=== PATIENT | male | born 1960 | race Caucasian/White ===

== ENCOUNTER 2018-08-02 17:03 | Outpatient (REF) | payer BC, SELFPAY ==
[2018-08-02 21:16] LABS: Abs Immature Grans 0.01 k/cumm (0.0-0.09); Absolute Basophil Count 0.02 k/cumm (0.0-0.2); Absolute Eosinophil Count 0.04 k/cumm (0.0-0.7); Absolute Monocyte Count 0.66 k/cumm (0.11-0.7); Absolute Neutrophil Count 4.61 k/cumm (1.2-6.7); Basophils % 0.3; Eosinophils % 0.6; HCT 41.1 % (40.0-50.0); HGB 14.1 g/dL (13.5-17.5); Immature Grans % 0.1; Lymphocytes % 23.1; Mean Corp. HGB Concentration 34.3 g/dL (32.0-36.0); Mean Corpuscular Hemoglobin 29.6 pg (27.0-33.0); Mean Corpuscular Volume 86.3 fL (80-95); Mean Platelet Volume 10.5 fL (8.0-11.0); Monocytes % 9.5; Neutrophils % 66.4; Platelet Count 221 x1000/uL (130-400); RBC 4.76 m/cumm (4.50-6.00); RBC Distribution Width 12.5 % (11.8-14.1); White Blood Cell Count 6.94 k/cumm (4.4-10.8)
[2018-08-02 21:30] LABS: ALT 32 U/L (12-78); AST 26 U/L (15-37); Albumin 4.2 g/dL (3.4-5.0); Alkaline Phosphatase 73 U/L (46-116); Anion Gap 8.6 mmol/L (3-11); BUN 17 mg/dL (7-18); Bilirubin, Total 0.5 mg/dL (0.2-1.0); CO2 29.4 mmol/L (21.0-32.0); CREATININE 0.84 mg/dL (0.70-1.30); Calcium 9.3 mg/dL (8.5-10.1); Chloride 101 mmol/L (98-107); Glucose 87 mg/dL (70-100); Potassium 3.9 mmol/L (3.5-5.1); Sodium 139 mmol/L (136-145); TSH (W/Ref FT4) 4.59 uIU/mL (0.358-3.74); Total Protein 7.2 g/dL (6.4-8.2)
[2018-08-02 21:48] LABS: FREE T4 0.89 ng/dL (0.76-1.46)
[2018-08-07 13:40] LABS: Testosterone, Total 270 ng/dL (240-950)
== END 2018-08-02 17:23 ==
LOC: NCHCN 17:03
PROVIDERS: PCP Family Medicine; Visit Provider Family Medicine
DX: M62.81 Muscle weakness (generalized) (principal); R53.83 Other fatigue; R23.2 Flushing
CPT/HCPCS: 80053; 84402; 84403; 84439; 84443; 85025

== ENCOUNTER 2018-09-19 15:25 | Outpatient (REF) | payer BC, SELFPAY ==
[2018-09-19 22:14] LABS: Abs Immature Grans 0.01 k/cumm (0.0-0.09); Absolute Basophil Count 0.02 k/cumm (0.0-0.2); Absolute Eosinophil Count 0.14 k/cumm (0.0-0.7); Absolute Lymphocyte Count 2.03 k/cumm (1.2-3.4); Absolute Monocyte Count 0.48 k/cumm (0.11-0.7); Absolute Neutrophil Count 4.37 k/cumm (1.2-6.7); Basophils % 0.3; HCT 38.8 % (40.0-50.0); HGB 13.2 g/dL (13.5-17.5); Immature Grans % 0.1; Lymphocytes % 28.8; Mean Corpuscular Hemoglobin 29.7 pg (27.0-33.0); Mean Corpuscular Volume 87.4 fL (80-95); Mean Platelet Volume 10.4 fL (8.0-11.0); Monocytes % 6.8; Platelet Count 233 x1000/uL (130-400); RBC 4.44 m/cumm (4.50-6.00); RBC Distribution Width 12.5 % (11.8-14.1); White Blood Cell Count 7.05 k/cumm (4.4-10.8)
[2018-09-19 22:28] LABS: TSH 2.02 uIU/mL (0.358-3.74)
[2018-09-19 23:18] LABS: ESR 9 MM/HR (1-20)
[2018-09-20 16:30] LABS: T3,Free 3.8 pg/ml (2.8-5.3)
[2018-09-20 16:44] LABS: T3, Total 229 ng/dl (97-169)
[2018-09-23 10:29] LABS: PSA, Screening 0.7 ng/ml (0-3.5)
[2018-09-24 11:42] LABS: Testosterone, Free 6.14 ng/dL (3.87-14.7); Testosterone, Total 307 ng/dL (240-950)
== END 2018-09-19 15:45 ==
LOC: NCHCN 15:25
PROVIDERS: PCP Family Medicine; Visit Provider Family Medicine
DX: R53.83 Other fatigue (principal); E29.1 Testicular hypofunction; M54.81 Occipital neuralgia; Z12.5 Encounter for screening for malignant neoplasm of prostate
CPT/HCPCS: 84153; 84402; 84403; 85652; 84443; 84480; 84481; 85025

== ENCOUNTER 2018-12-25 18:07 | Outpatient (REF) | payer BC, SELFPAY ==
[2018-12-25 22:36] LABS: TSH (W/Ref FT4) 3.25 uIU/mL (0.358-3.74)
[2018-12-25 23:26] LABS: Cholesterol 216 mg/dL (50-200); HDL Cholesterol 54 mg/dL (40-60); LDL CHOLESTEROL 142 mg/dL (<100); Triglyceride 158 mg/dL (30-150)
[2018-12-28 17:31] LABS: Testosterone, Free 5.15 ng/dL (3.87-14.7); Testosterone, Total 271 ng/dL (240-950)
== END 2018-12-25 18:27 ==
LOC: NCHCN 18:07
PROVIDERS: PCP Family Medicine; Visit Provider Family Medicine
DX: E29.1 Testicular hypofunction (principal); E03.9 Hypothyroidism, unspecified
CPT/HCPCS: 80061; 83721; 84402; 84403; 84443

== ENCOUNTER 2020-02-24 11:32 | Outpatient (REF) | payer BC, SELFPAY ==
[2020-02-24 19:59] LABS: CREATININE 0.86 mg/dL (0.70-1.30)
[2020-02-24 22:38] LABS: TSH (W/Ref FT4) 2.36 uIU/mL (0.36-3.74)
[2020-02-27 16:05] LABS: Testosterone, Free 10.6 ng/dL (3.87-14.7); Testosterone, Total 532 ng/dL (240-950)
== END 2020-02-24 11:52 ==
LOC: NCHCN 11:32
PROVIDERS: PCP Family Medicine; Visit Provider Nurse Practitioner Family
DX: E03.9 Hypothyroidism, unspecified (principal); E29.1 Testicular hypofunction
CPT/HCPCS: 84402; 84403; 82565; 84443

== ENCOUNTER 2020-05-19 08:21 | Outpatient (REF) | payer BC, SELFPAY ==
[2020-05-25 17:02] LABS: Testosterone, Free 10.5 ng/dL (3.87-14.7); Testosterone, Total 525 ng/dL (240-950)
== END 2020-05-19 08:41 ==
LOC: NCHCN 08:21
PROVIDERS: PCP Family Medicine; Visit Provider Family Medicine
DX: E29.1 Testicular hypofunction (principal)
CPT/HCPCS: 84402; 84403

== ENCOUNTER 2021-07-06 12:09 | Outpatient (REF) | payer BC, SELFPAY ==
[2021-07-06 15:42] LABS: ALT 37 U/L (16-63); AST 22 U/L (15-37); Albumin 4.4 g/dL (3.4-5.0); Alkaline Phosphatase 67 U/L (46-116); Anion Gap 12.4 mmol/L (3-11); BUN 18 mg/dL (7-18); Bilirubin, Total 0.6 mg/dL (0.2-1.0); CO2 25.6 mmol/L (21.0-32.0); Calcium 9.2 mg/dL (8.5-10.1); Calculated LDL 144 mg/dL (<100); Chloride 104 mmol/L (98-107); Cholesterol 197 mg/dL (<200); Glucose 101 mg/dL (74-106); HDL Cholesterol 43 mg/dL (40-60); Potassium 4.3 mmol/L (3.5-5.1); Sodium 142 mmol/L (136-145); TSH (W/Ref FT4) 1.52 uIU/mL (0.36-3.74); Total Protein 7.4 g/dL (6.4-8.2); Triglyceride 53 mg/dL (<150)
== END 2021-07-06 12:10 | disposition home or self-care (01) ==
LOC: NCHCN 12:09
PROVIDERS: PCP Family Medicine; Visit Provider Family Medicine
DX: Z12.11 Encounter for screening for malignant neoplasm of colon (principal); G47.33 Obstructive sleep apnea (adult) (pediatric); E03.9 Hypothyroidism, unspecified; M99.01 Segmental and somatic dysfunction of cervical region
CPT/HCPCS: 80053; 80061; 84443

== ENCOUNTER 2023-07-27 19:35 | Emergency (ER) | payer BC, SELFPAY ==
[2023-07-27 20:12] VITALS: BP 130/67; PULSE 59; RESP 20; TEMP 36.4; O2SAT 99
--- NOTE | 2023-07-27 21:20 | ED.GENADUL_ITS ---
Discharge Plan Disposition Patient Disposition: Home Condition: Stable Discharge Details Clinical Impression: Laceration of finger of left hand Primary Care Provider: Tiara Louis ED Provider: Diana Howell Home Meds and New Rx's Prescriptions: Continued celecoxib [Celebrex] 200 mg capsule 200 mg PO BID lidocaine [Lidoderm] 5 % adhesive patch,medicated 1 patch TP DAILY cyclobenzaprine 10 mg tablet 10 mg PO TID levothyroxine 75 mcg capsule 75 mcg PO DAILY polyethylene glycol 3350 17 gram/dose powder 238 g PO ONCE Qty: 238 0RF Rx Instructions: Colonoscopy Bowel Prep- Per Instructions bisacodyl [Dulcolax (bisacodyl)] 5 mg tablet,delayed release (DR/EC) 5 mg PO ONCE Qty: 4 0RF Rx Instructions: Colonoscopy Bowel Prep- Per Instructions melatonin 10 MG capsule 10 mg PO HS clonazepam 0.5 MG tablet 0.5 mg PO PRN PRN acetaminophen [Acetaminophen Extra Strength] 500 MG tablet 1,000 mg PO Q8H PRN PRNQty: 90 0RF ibuprofen 600 MG tablet 600 mg PO Q8H PRN PRNQty: 90 0RF trazodone 50 mg Tablet 50 mg PO HS Discharge Instructions Instructions: Finger Laceration (ED) Additional Instructions: You have [address] that will need to be removed in 7 to 10 days. You can return here for suture removal. Wear splint to help finger from bending You can keep this initial dressing on for 24 to 48 hours then remove wash daily with warm soapy water gently rinse completely pat dry can apply thin layer bacitracin ointment or Neosporin dry dressing to protect Can leave open to air at night if wanted. Monitor for signs of infection including redness fever drainage or concerns and report immediately. Your tetanus has been updated Referrals: Tiara Louis [Primary Care Provider] - (Primary care provider or return here to the emergency department for suture removal in 7 to 10 days) Medical Decision Making Patient presents with isolated laceration sustained on a kitchen knife while cutting meat. Wound was cleansed prior to arrival. Last tetanus 2015 we will update today on this visit. Wound is anesthetized using 2% lidocaine with good effect. Wound bed explored with no foreign body or debris wound edges well approximated. 7 sutures interrupted simple inserted. Wound is cleansed again by nursing Xeroform dry dressing to gauze and finger splint applied instructed to return in 7 to 10 days for suture removal HPI General Mode of arrival: ambulatory . Date/Time Provider Initiated Documentation: 07/27/23 20:45 . Limitations to Documentation: no limitations . Information obtained by: patient . HPI Narrative: This is a 63-year-old male no significant past medical history not on antic oagulation in his usual state of health when he sustained a laceration to his left index finger. Laceration is between MCP and PIP and over his PIP joint. Reports difficulty controlling bleeding but is controlled with pressure. Wound care provided prior to arrival. Related Data Home Medications Medication Instructions Recorded Confirmed melatonin 10 mg capsule 10 mg PO HS 05/27/18 11/26/19 acetaminophen 500 mg tablet 1,000 mg PO Q8H PRN PRN #90 tabs 05/28/18 11/26/19 (Acetaminophen Extra Strength) clonazepam 0.5 mg tablet 0.5 mg PO PRN PRN 05/28/18 11/26/19 ibuprofen 600 mg tablet 600 mg PO Q8H PRN PRN #90 tabs 05/28/18 11/26/19 celecoxib 200 mg capsule (Celebrex) 200 mg PO BID 08/05/19 11/26/19 cyclobenzaprine 10 mg tablet 10 mg PO TID 08/05/19 11/26/19 lidocaine 5 % topical patch 1 patch topical DAILY 08/05/19 11/26/19 (Lidoderm) bisacodyl 5 mg tablet,delayed 5 mg PO ONCE Colonoscopy Bowel 11/13/19 11/26/19 release (Dulcolax (bisacodyl)) Prep #4 tabs levothyroxine 75 mcg capsule 75 mcg PO DAILY 11/13/19 11/26/19 polyethylene glycol 3350 17 238 g PO ONCE Colonoscopy Bowel 11/13/19 11/26/19 gram/dose oral powder Prep #238 grams trazodone 50 mg tablet 50 mg PO HS 11/26/19 11/26/19 Previous Rx's Medication Instructions Recorded acetaminophen 500 mg tablet 1,000 mg PO Q8H PRN PRN #90 tabs 05/28/18 (Acetaminophen Extra Strength) ibuprofen 600 mg tablet 600 mg PO Q8H PRN PRN #90 tabs 05/28/18 bisacodyl 5 mg tablet,delayed 5 mg PO ONCE Colonoscopy Bowel 01/09/20 release (Dulcolax (bisacodyl)) Prep #4 tabs polyethylene glycol 3350 17 238 g PO ONCE Colonoscopy Bowel 11/13/19 gram/dose oral powder Prep #238 grams Allergies Allergy/AdvReac Type Severity Reaction Status Date / Time aspartame Allergy Intermediate Other (See Unverified 11/26/19 12:49 Comment) Opioids - Morphine Analogues AdvReac Mild Nausea Unverified 11/26/19 12:49 ASPARTANE Allergy Intermediate VASOCONSTRI Uncoded 11/26/19 12:49 CTION/MIGRA INE General Stated Complaint: Laceration JENNY: 4 Review of Systems All systems reviewed & are unremarkable except as noted in HPI and below PFSH All Active Problems (Updated 07/27/23 @ 21:26 by Diana Howell NP) Fatigue (Acute) Hypogonadism (Acute) Chronic neck pain (Acute) Anxiety (Chronic) Depression (Chronic) Insomnia (Acute) Occipital neuralgia (Acute) Hypothyroidism (Chronic) Laceration of finger of left hand (Acute) Medical History (Updated 07/27/23 @ 21:26 by Diana Howell NP) Fusion of spine of cervical region c2-c3 Surgical History (Updated 11/26/19 @ 12:57 by Ruddy Catherine) H/O excision of ganglion cyst H/O hemorrhoidectomy H/O inguinal hernia repair H/O uvulectomy Hx of tonsillectomy Social History Smoking/Tobacco Use Status: Never Smoking risk assessment performed?: Yes Drug use: Daily Substance use type: marijuana Details: Medical marijuana Do you feel safe at home: Yes Do you feel safe in your relationship?: Yes Exam Const General: cooperative, healthy appearing and comfortable Skin Trauma: laceration (Irregular with flap approximately 2 cm x 1 cm over dorsal aspect left index) Course Vital Signs Vital signs: Vital Signs Temperature 36.4 C L 07/27/23 20:12 Pulse 59 L 07/27/23 20:12 Respiratory Rate 20 07/27/23 20:12 Blood Pressure 130/67 07/27/23 20:12 Pulse Oximetry 99 07/27/23 20:12 Temperature 36.4 C L 07/27/23 20:12 Temperature Source Temporal Artery Scan 07/27/23 20:12 Pulse 59 L 07/27/23 20:12 Respiratory Rate 20 07/27/23 20:12 Respiratory Effort Normal 07/27/23 20:29 Blood Pressure 130/67 07/27/23 20:12 Blood Pressure Position Sitting 07/27/23 20:12 Pulse Oximetry 99 07/27/23 20:12 Oxygen Delivery Method Room Air 07/27/23 20:12 Oxygen Flow Rate 0 07/27/23 20:12 Pain Level 2 07/27/23 20:29 Procedures Laceration Laceration 1: Site: hand (Index finger) Side (If applicable): left Size (cm): 2 Description: flap, irregular and clean Depth: simple, single layer Local Anesthetic: Lidocaine 2% Amount of anesthesia used (mL): 2 Pre-repair: wound explored, irrigated extensively and deep structures intact Skin layer closed with: nylon and other Size (cm): 4-0 Number of sutures: 7 Technique: simple, interrupted
[2023-07-27] MEDS: Tetanus & Diphtheria Tox,ADULT 0.5 ML VIAL IM (21:42)
== END 2023-07-27 21:43 | disposition home or self-care (01) ==
PROVIDERS: Emergency Provider Nurse Practitioner Acute Care; PCP Family Medicine
DX: S61.211A Laceration without foreign body of left index finger without damage to nail, initial encounter (principal); W26.0XXA Contact with knife, initial encounter; Y93.G1 Activity, food preparation and clean up; Z23 Encounter for immunization
CPT/HCPCS: 12001; 90471; 99284

== ENCOUNTER 2023-12-12 15:44 | Outpatient (REF) | payer BC, SELFPAY ==
[2023-12-12 16:31] LABS: ALT 40 U/L (16-63); AST 26 U/L (15-37); Albumin 4.2 g/dL (3.4-5.0); Alkaline Phosphatase 54 U/L (46-116); Anion Gap 11.7 mmol/L (3-11); BUN 15 mg/dL (7-18); Bilirubin, Total 0.7 mg/dL (0.2-1.0); CO2 28.3 mmol/L (21.0-32.0); CREATININE 0.9 mg/dL (0.70-1.30); Calcium 9.5 mg/dL (8.5-10.1); Calculated LDL 154 mg/dL (<100); Chloride 103 mmol/L (98-107); Cholesterol 218 mg/dL (<200); Estimated GFR 97.17 (mL/min/1.73m2); Glucose 102 mg/dL (74-106); HDL Cholesterol 52 mg/dL (40-60); Potassium 3.4 mmol/L (3.5-5.1); Sodium 143 mmol/L (136-145); TSH 3.37 uIU/mL (0.36-3.74); Triglyceride 60 mg/dL (<150)
[2023-12-18 10:36] LABS: PSA, Screening 0.6 ng/mL (<=4.5)
== END 2023-12-12 15:45 | disposition home or self-care (01) ==
LOC: NCHCN 15:44
PROVIDERS: PCP Family Medicine; Visit Provider Physician Assistant
DX: Z12.5 Encounter for screening for malignant neoplasm of prostate (principal); E78.5 Hyperlipidemia, unspecified; E03.9 Hypothyroidism, unspecified
CPT/HCPCS: 80053; 80061; 84153; 84439; 84443

== ENCOUNTER 2025-08-01 13:58 | Outpatient (REF) | payer BC, SELFPAY ==
[2025-08-01 17:24] LABS: Anion Gap 11.1 mmol/L (3-11); BUN 19 mg/dL (7-18); CO2 26.9 mmol/L (21.0-32.0); Calcium 9.4 mg/dL (8.5-10.1); Chloride 103 mmol/L (98-107); Glucose 105 mg/dL (74-106); Potassium 4.1 mmol/L (3.5-5.1); Sodium 141 mmol/L (136-145)
[2025-08-01 17:46] LABS: RBC Negative HPF (0-2); WBC Negative HPF (0-5)
== END 2025-08-01 13:59 | disposition home or self-care (01) ==
LOC: LBN 13:58
PROVIDERS: PCP Family Medicine; Visit Provider Physician Assistant Medical
DX: R82.90 Unspecified abnormal findings in urine (principal)
CPT/HCPCS: 80048; 81015; 87086